=== PATIENT | male | born 1965 | race African-American/Black ===

== ENCOUNTER 2022-09-17 18:57 | Emergency (ER) | payer OTHER ==
[~2022-09-17] VITALS: Ht 182.9 cm; Wt 105.7 kg
[2022-09-17] MEDS ORDERED: NITROGLYCERIN OINT 1 GM PACKET TP ONE ×2 (19:45→19:46)
[2022-09-17] MEDS ORDERED: LORAZEPAM 0.5 MG TABLET PO ONE (19:45)
[2022-09-17] MEDS ORDERED: HYDROCODONE/APAP 5-325MG TABLET PO ONE (19:45)
[2022-09-17] MEDS ORDERED: HYDROCODONE/APAP 5-325MG TABLET ONE (19:47)
[2022-09-17] MEDS ORDERED: LORAZEPAM 0.5 MG TABLET ONE (19:47)
[2022-09-17 20:01] LABS: HEMATOCRIT 39.8 % (36.7-47.1); MEAN CORPUSCULAR HEMOGLOBIN 26.7 uug (23.8-33.4); MEAN CORPUSCULAR VOLUME 83.4 fL (73.0-96.2); PLATELET COUNT (AUTO) 209 K/uL (152-348)
[2022-09-17] MEDS ORDERED: PERM60CR19 TP (20:15)
[2022-09-17 20:17] LABS: CARBON DIOXIDE 27 mmol/L (21-32); CHLORIDE 102 mmol/L (98-107); CREATININE 1.3 mg/dL (0.6-1.3); GLUCOSE 90 mg/dL (74-106); UREA NITROGEN, BLOOD 13 mg/dL (7-18)
[2022-09-17 20:30] LABS: ALANINE AMINOTRANSFERASE 56 U/L (16-63); ALKALINE PHOSPHATASE 112 U/L (50-136); ASPARTATE AMINOTRANSFERASE 47 U/L (15-37); BILIRUBIN,DIRECT 0.1 mg/dL (0.0-0.2); BILIRUBIN,TOTAL 0.4 mg/dL (0.2-1.0); TOTAL PROTEIN, SERUM 7.4 g/dL (6.4-8.2)
--- NOTE | 2022-09-17 21:10 | NUR ---
Patient does not wish to proceed with medical care recommended by Dr. garcía. Patient given information related to possible complications, up to and including , which could occur as a result of leaving the hospital at this time. Patient verbalizes understanding of risks involved due to leaving against medical advice. Patient has signed AMA form.
[2022-09-17 21:15] VITALS: BP 115/74
--- NOTE | 2022-09-17 21:15 | NUR ---
Patient given written and verbal discharge instructions. Patient verbalizes understanding of instructions. Patient is ambulatory with steady gait. Refuses offer of [facility] placement. Patient given list of available shelters in surrounding area.
== END 2022-09-17 21:16 | disposition left against medical advice (07) ==
LOC: ER 18:57
DX: R07.9 Chest pain, unspecified (principal); F15.150 Other stimulant abuse with stimulant-induced psychotic disorder with delusions; J44.9 Chronic obstructive pulmonary disease, unspecified; F17.210 Nicotine dependence, cigarettes, uncomplicated; Z59.00 Homelessness unspecified
CPT/HCPCS: 36415; 71045; 84484; 85025; 93005; A4663